=== PATIENT | female | born 1975 | race Hispanic/Latino ===

== ENCOUNTER 2019-10-15 12:06 | Emergency (ER) | payer BC, SELFPAY ==
[2019-10-15] VITALS (7 sets, daily range): BP systolic 113–138; BP diastolic 82–98; PULSE 56–105; RESP 13–19; TEMP 37; O2SAT 98–100
--- NOTE | ~2019-10-15 | XR_ITS ---
EXAMINATION: XR chest 2V DATE: 10/15/2019 12:33 INDICATION: Chest pain. TECHNIQUE: Frontal and lateral views of the chest were obtained. COMPARISON: Chest 2 views 10/06/2014 FINDINGS: The chest demonstrates clear lungs without pneumonia, pleural effusion, or pneumothorax. Th e heart size is normal. IMPRESSION: 1. No acute cardiopulmonary disease. Reviewed, dictated and finalized at location A.
--- NOTE | 2019-10-15 12:13 | ECG_ITS ---
Measurements Intervals [place] Rate: 93 P: 53 IA: 128 QRS: 34 QRSD: 83 T: 30 QT: 320 QTc: 399 Interpretive Statements SINUS RHYTHM POSSIBLE LEFT ATRIAL ENLARGEMENT BASELINE ARTIFACT- i, ii, iii, avr BORDERLINE ECG Electronically Signed On 10-15-2019 13:32:20 CDT by Delvis Alvarez D.O.
--- NOTE | 2019-10-15 12:13 | ED.CHESTPAIN ---
HPI - Chest Pain General Chief Complaint: Chest Pain Stated Complaint: cp Time Seen by Provider: 10/15/19 12:08 Source: RN notes reviewed History of Present Illness HPI narrative: Patient presents to emergency department from home for chest pain. Patient states pain began this morning. Pain is located left-sided chest and does not radiate. Described as sharp and stabbing. Patient notes mild associated shortness of breath. Denies any fevers or chills abdominal pain nausea vomiting or any other symptoms. States she took Tums at home with minimal relief. Related Data Home Medications Medication Instructions Recorded Confirmed cholecalciferol (vitamin D3) 125 5,000 unit PO DAILY 04/01/19 mcg (5,000 unit) tablet mycophenolate mofetil 500 mg tablet 1,000 mg PO Q12H 04/01/19 omega-3 fatty acids 500 mg capsule 500 mg PO DAILY 04/01/19 atorvastatin 20 mg tablet 20 mg PO DAILY 08/09/19 multivitamin 1 tablet PO DAILY 08/09/19 prednisone 5 mg tablet 5 mg PO DAILY tablet 08/09/19 vitamin E 1,000 unit PO DAILY 10/15/19 Allergies Allergy/AdvReac Type Severity Reaction Status Date / Time No Known Allergies Allergy Unknown Verified 10/15/19 13:07 Review of Systems Review of Systems: Narrative: Gen.: Denies fevers or chills ENT: Denies congestion Respiratory: Denies shortness of breath or cough CV: See HPI GI: Denies abdominal pain nausea, emesis or diarrhea Musculoskeletal: Denies back pain or muscle pain Neuro: Denies numbness, tingling, weakness or focal weakness Skin: Denies rash Except as documented, all other systems reviewed and negative [facility] Past Medical History Medical History Bartholin's cyst drained - Dec 2018 Dyslipidemia Lupus 2006 Surgical History Surgical History (Updated 04/01/19 @ 13:18 by Mimi Casiano) History of kidney surgery biopsy Family History Family History (Updated 09/15/18 @ 13:51 by DOCTOR UNKNOWN) Other Family history of rheumatoid arthritis Social History Social History Smoking status: Never smoker Second hand tobacco smoke exposure: No Alcohol intake: current Gender identity (if verbalized by the patient): Female Exam Narrative: Exam Narrative: APPEARANCE: No acute distress, nontoxic, resting in bed EYES: EOMI HEENT: Normocephalic, atraumatic, OMM RESPIRATORY: No respiratory distress Clear to auscultation bilaterally with no rhonchi wheezing or rales. CARDIOVASCULAR: Regular rate and rhythm without murmurs rubs or gallops. ABDOMINAL: Soft, nontender, nondistended, no rebound or guarding MUSCULOSKELETAl: Moves all extremities. No clubbing, cyanosis or edema. NEURO: Awake and alert. Following commands, speech normal, no focal deficits SKIN:: Warm, dry. No rashes lesions or abrasions PSYCHIATRIC: Normal affect/mood, Course Course Emergency Course: Patient states pain is improved with Toradol Discussed with patient results of workup and diagnosis. Discussed need for follow-up with primary care, proper use of medication, and reasons to return to the emergency department. Patient understands and agrees to current treatment plan Vital Signs Vital signs: Vital Signs Temperature 98.6 F 10/15/19 12:09 Pulse Rate 105 H 10/15/19 12:09 Respiratory Rate 13 10/15/19 12:09 Blood Pressure 138/98 H 10/15/19 12:09 Pulse Oximetry 98 10/15/19 12:09 Temperature 98.6 F 10/15/19 13:34 Pulse Rate 56 L 10/15/19 15:14 Respiratory Rate 18 10/15/19 15:14 Blood Pressure 114/82 10/15/19 15:14 Pulse Oximetry 98 10/15/19 15:14 MDM - Chest Pain MDM Narrative Medical decision making narrative: Patient's EKGs and labs are without significant high risk changes. Cardiac risk factors reviewed. Patient is felt likely low risk for ACS and reasonable for further risk stratification testing as an outpatient. Pain was not sudden
[2019-10-15 12:24] LABS: Basophils Percent Auto 0.5 % (0.2-1.2); Eosinophils Percent Auto 0.2 % (0-4.4); Hematocrit 41.9 % (37.0-47.0); Hemoglobin 14.1 g/dL (12.0-15.0); Immature Granulocyte Absolute 0.02 K/mm3 (0.00-0.031); Immature Granulocyte Percent A 0.4 % (0-0.5); Lymphocytes Absolute Auto 0.72 K/mm3 (0.9-3.2); Lymphocytes Percent Auto 12.6 % (18.3-44.2); Mean Corpuscular HGB Conc 33.7 g/dl (32-36); Mean Corpuscular Hemoglobin 29.7 pg (26-34); Mean Corpuscular Volume 88.4 fl (80-100); Mean Platelet Volume 11.5 fl (7.4-10.4); Monocytes Absolute Auto 0.2 K/mm3 (0.1-0.6); Neutrophils Absolute Auto 4.7 K/mm3 (1.3-6.7); Neutrophils Percent Auto 82.3 % (45.5-73.1); Platelet Count Result 169 k/mm3 (150-375); Red Blood Count 4.74 M/mm3 (4.2-5.4); Red Cell Distribution Width 11.7 % (11.5-14.5); White Blood Count 5.7 K/mm3 (4.5-10.0)
[2019-10-15 12:34] LABS: INR 0.9; Partial Thromboplastin Time 22.2 SECONDS (22.3-36.8); Prothrombin Time 11.3 Seconds (11.1-14.7)
[2019-10-15 12:35] LABS: Blood Urea Nitrogen 20 mg/dL (7-17); Calcium 10.2 mg/dL (8.4-10.2); Carbon Dioxide 28 mmol/L (22-30); Chloride 103 mmol/L (98-107); Estimated CRCL calculation 77 ml/min; Estimated Glomerular Filt Rate > 60; Glucose 107 mg/dL (65-105); Potassium 4.1 mmol/L (3.4-5.0); Sodium 135 mmol/L (137-145)
[2019-10-15 12:46] LABS: Troponin I < 0.012 ng/mL (0.000-0.034)
[2019-10-15] MEDS: KETOROLAC 30 MG/ML VIAL (*BKC) IV PUSH (13:06)
[2019-10-15 13:25] LABS: D Dimer 0.27 ug/mL (<0.48)
[2019-10-15 15:38] LABS: Troponin I < 0.012 ng/mL (0.000-0.034)
== END 2019-10-15 16:38 | disposition home or self-care (01) ==
PROVIDERS: Emergency Provider Emergency Medicine; PCP Family Medicine
DX: R07.9 Chest pain, unspecified (principal); E78.5 Hyperlipidemia, unspecified; R94.31 Abnormal electrocardiogram [ECG] [EKG]
CPT/HCPCS: 36415; 71046; 80048; 81025; 84484; 85025; 85380; 85610; 85730; 93005; 96374; 99284; J1885

== ENCOUNTER → 2020-10-11 11:00 | Outpatient (CLI) | payer BC, SELFPAY ==
--- NOTE | ~2020-10-11 | XR_ITS ---
EXAMINATION: XR chest 2V 10/11/2020 13:48 INDICATION: Chest pain PROCEDURE: 2 view chest COMPARISON: Comparison to multiple prior studies sequentially, with oldest reviewed study dated 08/2013. FINDINGS: The lungs are clear. The cardiomediastinal silhouette is within normal limits. There are no pleural effusions. There is no pneumothorax suspected. IMPRESSION: 1: NO ACUTE CARDIOPULMONARY DISEASE. Reviewed, dictated and finalized at location A.
== END ==
PROVIDERS: PCP Family Medicine; Visit Provider Family Medicine
DX: R07.89 Other chest pain (principal)
CPT/HCPCS: 71046

== ENCOUNTER 2022-04-16 09:26 | Outpatient (CLI) | payer BC, SELFPAY ==
--- NOTE | 2022-04-16 11:00 | NEURO_ITS ---
Impression: # History of numbness in digits I-III of the left hand. # Mild left Carpal Tunnel Syndrome. # Normal needle/EMG exam. # Clinical correlation recommended. Motor Nerve Conduction Upper Extremities Median Nerve Conduction Velocity (m/sec) Terminal Latency (msec) Response Voltage(mV) Elbow-Wrist Wrist Elbow Wrist Right Left 55 4.1 3 4 Ulnar Nerve Conduction Velocity (m/sec) Terminal Latency (msec) Response Voltage(mV) Above Elbow Below Elbow Wrist Above Elbow Below Elbow Wrist Right Left 55 58 2.7 4 4 5 F-Wave Latency Median (ms) Ulnar (ms) Right Left 28.9 27.7 Sensory Nerve Conduction Upper Extremities Median Nerve Stimulation Terminal Latency (msec) Wrist/Digit Response Voltage (uV) Wrist Right Left 5.1/5.1 44/39 Ulnar Nerve Stimulation Terminal Latency (msec) Wrist/Digit Response Voltage (uV) Wrist Right Left 3.0 38 Radial Nerve Terminal Latency (msec) Response Voltage(mV) Right Left 2.3 43 Left Right Muscles Examined Fibrillation Fasciculation Scarcity Voltage Duration Left Right Left Right Left Right Left Right Left Right Deltoid Biceps X Brachioradialis Triceps X Pronator Teres X Ext Indicis X Ext Digitorum X Abd Poll Brev X 1st Dorsal Interosseus Paraspinals MTDD
== END 2022-04-16 09:27 | disposition home or self-care (01) ==
PROVIDERS: PCP Family Medicine; Visit Provider Family Medicine
DX: R20.2 Paresthesia of skin (principal); G56.02 Carpal tunnel syndrome, left upper limb
CPT/HCPCS: 95886; 95909

== ENCOUNTER 2022-10-18 01:15 | Day surgery (SDC) | payer BC, SELFPAY ==
[2022-10-10 10:03] VITALS: BMI 21.5
--- NOTE | 2022-10-17 12:31 | WPDANESEPPF ---
Anes - Initial Pre Proc Eval Procedure: Operation Date: 10/18/22 07:30 Proposed Procedures p Screening Colonoscopy - Mann You MD Date/Time: 10/17/22 12:31 Surgeon: Mann You MD Pre Op Diagnosis: neoplasm screening Patient Data Age: 46 Gender: F Height: 1.63 m Weight: 57 kg Allergies Allergy/AdvReac Type Severity Reaction Status Date / Time No Known Allergies Allergy Unknown Verified 10/18/22 06:21 Home Medications Medication Instructions Recorded Confirmed Type mycophenolate mofetil 500 mg tablet 1,000 mg PO Q12H 04/01/19 10/18/22 History omega-3 fatty acids 500 mg capsule 500 mg PO DAILY 04/01/19 10/18/22 History multivitamin 1 tablet PO DAILY 08/09/19 10/18/22 History cholecalciferol (vitamin D3) 50 50 mcg PO DAILY 05/14/21 10/18/22 History mcg (2,000 unit) capsule rosuvastatin 10 mg tablet 10 mg PO QHS 05/14/21 10/18/22 History ezetimibe 10 mg tablet 10 mg PO DAILY 03/27/22 10/18/22 History estradiol 10 mcg vaginal tablet 10 mcg vaginal DIRECTED PRN 08/06/22 10/18/22 History (Yuvafem) Menopausal Symptoms losartan 50 mg tablet 50 mg PO DAILY #90 tabs 08/06/22 10/18/22 Rx Patient hx anesthesia problems: none Family hx anesthesia problems: none Results Review: All pre-operative results and documents have been reviewed as part of the pre-operative evaluation. [facility] Past Medical History Medical History Anxiety Bartholin's cyst drained - Dec 2018 Dyslipidemia Essential (primary) hypertension History of COVID-19 04/2021 Lupus 2007 Lupus nephritis SLE (systemic lupus erythematosus related syndrome) Surgical History Surgical History H/O breast biopsy (~02/20/22) H/O LEEP (~2010) History of kidney surgery (~2018) biopsy Family History Family History Other Family history of rheumatoid arthritis Social History Social History Smoking status: Never smoker Second hand tobacco smoke exposure: No Alcohol intake: current Alcohol use details: socially Substance use: never Substance use type: does not use Lack of Transportation: No Lack of Food: Never True Current Housing: I Have Housing Concerned About Future Housing: No Difficulty Paying Gas/Electric Bills: No Difficulty Paying for Meds: No Currently Unemployed: No Education: Associate Degree Difficulty w/ Childcare or Family Care: No Living arrangements: with family Additional living arrangements comments: Occupation/Education: occupation Gender identity (if verbalized by the patient): Female Sexual Orientation (if Verbalized by the Patient): Straight or Heterosexual Spiritual care concerns: No Anes - Eval Final PreProcedure Day of Procedure 10/17/22 12:31 Patient weight: normal Heart: regular rate and rhythm Lungs: clear to auscultation and normal air movement Airway: Mallampati scale class II Neurological: alert and oriented Last oral intake: >/= 8 hours ASA classification: III Emergent: no Anesthetic plan: proceed Anesthesia type and monitoring: general GIVS and standard monitoring Results Review: All pre-operative results and documents have been reviewed as part of the pre-operative evaluation. Informed Consent: The patient's anesthetic plan and its attendant risks and benefits were discussed with the patient/family/POA. Questions were solicited and answers provided to the satisfaction of the patient/family/POA.
[2022-10-18 06:22] VITALS: BP 108/63; PULSE 63; RESP 16; TEMP 36.4; O2SAT 100
[2022-10-18] MEDS: LACTATED RINGERS 1,000 ML 150 ML IV CONT (06:24)
--- NOTE | 2022-10-18 07:23 | PM.HPGS ---
History of Present Illness History of Present Illness Consent: Risks, benefits, and alternatives have been discussed and questions answered. Patient agrees to proceed with procedure. Chief complaint: neoplasm screening Narrative: Rosi Major is a 46 year old female Presents for screening colonoscopy. Patient's current weight appetite and bowel movements are normal. Patient denies abdominal pain. She has had no bleeding. Family history noncontributory. Patient does occasional have some tendency towards constipation occasional rectal discomfort noted incidentally. Review of Systems Review of Systems: Review of systems noncontributory. [facility] Past Medical History Medical History Anxiety Bartholin's cyst drained - Dec 2018 Dyslipidemia Essential (primary) hypertension History of COVID-19 04/2021 Lupus 2007 Lupus nephritis SLE (systemic lupus erythematosus related syndrome) Surgical History Surgical History H/O breast biopsy (~02/20/22) H/O LEEP (~2010) History of kidney surgery (~2018) biopsy Family History Family History Other Family history of rheumatoid arthritis Social History Social History Smoking status: Never smoker Second hand tobacco smoke exposure: No Alcohol intake: current Alcohol use details: socially Substance use: never Substance use type: does not use Lack of Transportation: No Lack of Food: Never True Current Housing: I Have Housing Concerned About Future Housing: No Difficulty Paying Gas/Electric Bills: No Difficulty Paying for Meds: No Currently Unemployed: No Education: Associate Degree Difficulty w/ Childcare or Family Care: No Living arrangements: with family Additional living arrangements comments: Occupation/Education: occupation Gender identity (if verbalized by the patient): Female Sexual Orientation (if Verbalized by the Patient): Straight or Heterosexual Spiritual care concerns: No Meds Home Medications and Allergies Home Medications Medication Instructions Recorded Confirmed Type mycophenolate mofetil 500 mg tablet 1,000 mg PO Q12H 04/01/19 10/18/22 History omega-3 fatty acids 500 mg capsule 500 mg PO DAILY 04/01/19 10/18/22 History multivitamin 1 tablet PO DAILY 08/09/19 10/18/22 History cholecalciferol (vitamin D3) 50 50 mcg PO DAILY 05/14/21 10/18/22 History mcg (2,000 unit) capsule rosuvastatin 10 mg tablet 10 mg PO QHS 05/14/21 10/18/22 History ezetimibe 10 mg tablet 10 mg PO DAILY 03/27/22 10/18/22 History estradiol 10 mcg vaginal tablet 10 mcg vaginal DIRECTED PRN 08/06/22 10/18/22 History (Yuvafem) Menopausal Symptoms losartan 50 mg tablet 50 mg PO DAILY #90 tabs 08/06/22 10/18/22 Rx Allergies Allergy/AdvReac Type Severity Reaction Status Date / Time No Known Allergies Allergy Unknown Verified 10/18/22 06:21 Vital Signs Vital Signs - 24 hr 10/18/22 06:22 Temperature 97.5 F L Pulse Rate 63 Respiratory Rate 16 Blood Pressure 108/63 Pulse Oximetry 100 Oxygen Delivery Room Air Exam Narrative: Physical exam reveals patient to be alert. Vital signs stable. HEENT exam is unremarkable. Patient is anicteric. Lungs are clear to auscultation and percussion. Heart is without murmur or extra sounds. Abdomen bowel sounds are present soft nontender with no organomegaly. Digital external rectal exam is normal. Assessment and Plan Assessment and plan (1) Encounter for screening colonoscopy: Code(s): Z12.11 - Encounter for screening for malignant neoplasm of colon Status: Acute Assessment and Plan: Patient presents today for screening colonoscopy. She appears to be at average risk for colon polyps. Further recommendations
[2022-10-18 07:44] VITALS: BP 83/50; PULSE 61; RESP 18; O2SAT 99
[2022-10-18 07:54] VITALS: BP 90/56; PULSE 76; RESP 20; O2SAT 100
[2022-10-18 08:04] VITALS: BP 91/57; PULSE 65; RESP 14; O2SAT 100
== END 2022-10-18 08:13 | disposition home or self-care (01) ==
PROVIDERS: PCP Family Medicine; Visit Provider Internal Medicine Gastroenterology
PROC: 0DJD8ZZ Inspection of Lower Intestinal Tract, Via Natural or Artificial Opening Endoscopic (ICD-10-PCS; CPT 45378; principal; 2022-10-18 07:30)
DX: Z12.11 Encounter for screening for malignant neoplasm of colon (principal); K64.8 Other hemorrhoids; I10 Essential (primary) hypertension; E78.5 Hyperlipidemia, unspecified; M32.9 Systemic lupus erythematosus, unspecified
CPT/HCPCS: 45378; J2704; J7120

== ENCOUNTER 2024-08-17 07:20 | Outpatient (CLI) | payer BC, SELFPAY ==
--- NOTE | ~2024-08-17 | US_ITS ---
US retroperitoneal comp 08/17/2024 09:20 Procedure: Realtime transabdominal ultrasound of the kidneys and bladder. Indication: Lupus nephritis. Microhematuria Comparison: No prior studies for comparison. Findings: Renal echotexture is normal bilaterally without hydronephrosis, contour deforming mass or r enal calculus. The right kidney measures 12 cm and left kidney measures 10.6 cm. Bladder within norm al limits. Impression: 1: Unremarkable renal ultrasound. No stones, masses or hydronephrosis. Reviewed, dictated and finalized at location A. Impression: 1: Unremarkable renal ultrasound. No stones, masses or hydronephrosis.
--- OUTSIDE RECORDS SUMMARY | 2024-08-17 07:25 | XMS_ITS | Encounter Summary ---
Author Organization [facility] Address [address] [place] [address] Care Team Providers Care Paintings Restorer Name Role Phone Jeff Haines MD Primary Care Provider Encounter Details Date Type Department Care Team (Late st Contact Info) Description 2018 Lab Requisition [facility] [address] [place] [id number] Harshad D[place] [address] Social History Tobacco Use Types Packs/Day Years Used Date Smoking Tobacco: Never Smokeless Tobacco: Never Alcohol Use Standard Drinks/Week Comments Yes 0 (1 standard drink = 0.6 oz pur e alcohol) rarely Comments Unknown Sex and Gender Information Value Date Recorded Sex Assigned at Not on file 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 Answer Date of Assessment Author No 09/17/2018 12:32 AM Billie Bradley RN * Is person blind or have serious difficulty seeing? Answer Date of Assessment Author No 09/17/2018 12:32 AM Billie Bradley RN * Does person have serious difficulty walking/climbing stairs? Answer Date of Assessment Author No 09/17/2018 12:32 AM Billie Bradley RN * Does person have difficulty dressing/bathing? Answer Date of Assessment Author No 09/17/2018 12:32 AM CDT Billie Velasquez RN * Does person have difficulty doing errands alone? Answer Date of Assessment Author No 09/17/2018 12:32 AM CDT Billie Velasquez RN documented as of this encounter Mental Status * Does person have difficulty concentrating/remembering/making decisions? Answer Entry Date Author No 09/17/2018 12:32 AM ERMELINDAT Billie Velasquez RN documented in this encounter Plan of Treatment Not on file documented as of this encounter Procedures Procedure Name Priority Date/Time Associated Diagnosis Comments DERMATOPATHOLOGY Routine 11/03/2018 12:0 0 AM CDT documented in this encounter Results * DERMATOPATHOLOGY (11/03/2018 12:00 AM CDT) Case Report Dermatopathology Report Case: [id number] Authorizing Provider: Harshad Duff MD Collected: 11/03/2018 12:00 AM Pathologist: Ulises Mena MD Received: 2018 12:25 PM Specimens: A) - Skin, upper abd B) - Skin, right lat upper back C) - Skin, right mid triceps area 9 1:24 PM CDT DERMATOPATHOLOGY LABORATORY Final Diagnosis Specimen A. SKIN, upper abd: COMPOUND NEVUS WITH CONGENITAL FEATURES (D22.5) Specimen B. SKIN, right lat upper back: COMPOUND MELANOCYTIC NEVUS, IRRITATED (D22.5) Specimen C. SKIN, right mid triceps area: COMPOUND MELANOCYTIC NEVUS, IRRITATED (D22.61) 9 1:24 PM CDT DERMATOPATHOLOGY LABORATORY Clinical History A-C: R/O Dys nevus 9 1:24 PM CDT DERMATOPATHOLOGY LABORATORY Gross Description Specimen A: Received is one formalin filled container labeled with the patient's name and designated upper abd. The specimen consists of a shave biopsy measuring 10x7x1 mm. Jar 0. Specimen B: Received is one formalin filled container labeled with the patient's name and designated right lat upper back. The specimen consists of a shave biopsy measuring 9x6x3 mm. Jar 0. Specimen C: Received is one formalin filled container labeled with the patient's name and designated right mid triceps area. The specimen consists of a shave biopsy measuring 7x6x1 mm. Jar 0. 9 1:24 PM CDT DERMATOPATHOLOGY LABORATORY Microscopic Description Specimen A. SKIN, upper abd: There are nests of melanocytes at the dermal-epidermal junction and within the dermis. Some melanocytes are splayed between collagen bundles and are localized around adnexal structures. Specimen B. SKIN, right lat upper back: There is melanin pigment in the stratum corneum. There are nests of melanocytes at the dermal-epidermal junction and within the dermis. Specimen C. SKIN, right mid triceps area: There is melanin pigment in the stratum corneum. There are nests of melanocytes at the dermal-epidermal junction and within the dermis. 1:24 PM CDT DERMATOPATHOLOGY LABORATORY Disclaimer An external and internal positive and negative controls are appropriate for the histochemical, immunohistochemical and immunofluorescence stain(s) in this case (if any), except where stated explicitly. The performance characteristics of the stain(s) cited in this report were developed and its performance characteristic determined by the Dermatopathology Laboratory at [facility], directed by Dr. Stanislaw Mena. These tests need not be, and therefore are not, approved by the [place] Food and Drug Administration. The tests are used for clinical purposes. Billing Codes Specimen Charges Stain Charges 00866 [id number] 1 1 1 9 1:24 PM CDT DERMATOPATHOLOGY LABORATORY Embedded Images 1:24 PM CDT DERMATOPATHOLOGY LABORATORY Pathology/Cytology TISSUE SPECIMEN FROM SKIN / Unknown 11/03/2018 2018 12:25 PM CDT Miscellaneous samples (specimen) TISSUE SPECIMEN FROM SKIN / Unknown 11/03/2018 2018 12:25 PM CDT Miscellaneous samples (specimen) TISSUE SPECIMEN FROM SKIN / Unknown 11/03/2018 2018 12:25 PM CDT us Harshad Duff MD LAB - PATHOLOGY/CYTOLOGY ORD ERABLES Final Result DERMATOPATHOLOGY LABORATORY [facility] - Department of Dermatology [address] [place] [address], 5[address] Floor Lab [address] [phone] documented in this encounter Visit Diagnoses Not on filedocumented in this encounter Care Teams Paintings Restorer Relationship Specialty Start Date End Date Jeff Haines MD [address] [place] [phone] PCP - General 10/20/18 documented as of this encounter
--- OUTSIDE RECORDS SUMMARY | 2024-08-17 07:25 | XMS_ITS | Encounter Summary ---
Author Organization [facility] Address [address] [place] [address] Care Team Providers Care Harvest Crew Supervisor Name Role Phone Jeff Haines MD Primary Care Provider Encounter Details Date Type Department Care Team (Late st Contact Info) Description 11/12/2018 Lab Requisition 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 Answer Entry Date Author No 09/17/2018 12:32 AM ERMELINDAT Billie Velasquez RN documented in this encounter Plan of Treatment Not on file documented as of this encounter Procedures Procedure Name Priority Date/Time Associated Diagnosis Comments DERMATOPATHOLOGY Routine 11/11/2018 12:0 0 AM CDT documented in this encounter Results * DERMATOPATHOLOGY (11/11/2018 12:00 AM CDT) Case Report Dermatopathology Report Case: [id number] Authorizing Provider: Harshad Duff MD Collected: 11/11/2018 12:00 AM Pathologist: Ulises Mena MD Received: 11/12/2018 11:37 AM Specimens: A) - Skin, right post trapezius neck B) - Skin, right upper back 9 3:44 PM CDT DERMATOPATHOLOGY LABORATORY Final Diagnosis Specimen A. SKIN, right post trapezius neck: LENTIGINOUS MELANOCYTIC NEVUS, COMPOUND TYPE, IRRITATED (COMPOUND MELANOCYTIC NEVUS WITH ARCHITECTURAL DISORDER) (D22.61) Specimen B. SKIN, right upper back: LENTIGINOUS MELANOCYTIC NEVUS, COMPOUND TYPE, IRRITATED (COMPOUND MELANOCYTIC NEVUS WITH ARCHITECTURAL DISORDER) (D22.5) 9 3:44 PM CDT DERMATOPATHOLOGY LABORATORY Clinical History A-B: R/O dys nevus. 9 3:44 PM CDT DERMATOPATHOLOGY LABORATORY Gross Description Specimen A: Received is one formalin filled container labeled with the patient's name and designated right post trapezius neck. The specimen consists of a shave biopsy measuring [id number]. Jar 0. Specimen B: Received is one formalin filled container labeled with the patient's name and designated right upper back. The specimen consists of a shave biopsy measuring [id number]. Jar 0. 9 3:44 PM T DERMATOPATHOLOGY LABORATORY Microscopic Description Specimen A. SKIN, right post trapezius neck: This is a compound nevus. There is melanin pigment in the stratum corneum. There is architectural disorder characterized by a lentiginous proliferation of melanocytes between irregular nevus nests of cells along the dermal epidermal junction. There is underlying fibroplasia of the papillary dermis. The intradermal component is bland in appearance and matures with depth. (Compound Gary's Nevus or Compound Dysplastic Nevus) Specimen B. SKIN, right upper back: This is a compound nevus. There is melanin pigment in the stratum corneum. There is architectural disorder characterized by a lentiginous proliferation of melanocytes between irregular nevus nests of cells along the dermal epidermal junction. There is underlying fibroplasia of the papillary dermis. The intradermal component is bland in appearance and matures with depth. (Compound Gary's Nevus or Compound Dysplastic Nevus) 9 3:44 PM T DERMATOPATHOLOGY LABORATORY Disclaimer An external and internal positive and negative controls are appropriate for the histochemical, immunohistochemical and immunofluorescence stain(s) in this case (if any), except where stated explicitly. The performance characteristics of the stain(s) cited in this report were developed and its performance characteristic determined by the Dermatopathology Laboratory at [facility], directed by Dr. Stanislaw Mena. These tests need not be, and therefore are not, approved by the [place] Food and Drug Administration. The tests are used for clinical purposes. Billing Codes Specimen Charges Stain Charges 69680 35083 1 1 9 3:44 PM CDT DERMATOPATHOLOGY LABORATORY Embedded Images 9 3:44 PM CDT DERMATOPATHOLOGY LABORATORY Pathology/Cytology TISSUE SPECIMEN FROM SKIN / Unknown 11/11/2018 11/12/2018 11:37 AM CDT Miscellaneous samples (specimen) TISSUE SPECIMEN FROM SKIN / Unknown 11/11/2018 11/12/2018 11:37 AM CDT Harshad Duff MD LAB - PATHOLOGY/CYTOLOGY ORD ERABLES Final Result DERMATOPATHOLOGY LABORATORY [facility] - Department of Dermatology [address] [place] [address], 5th Floor Lab [address] [phone] documented in this encounter Visit Diagnoses Not on filedocumented in this encounter Care Teams Harvest Crew Supervisor Relationship Specialty Start Date End Date Jeff Haines MD [address] [place] [address] PCP - General 10/20/18 documented as of this encounter
--- OUTSIDE RECORDS SUMMARY | 2024-08-17 07:26 | XMS_ITS | Encounter Summary ---
Author Organization [facility] Address [address] [place] [address] Care Team Providers Care Director Adult Name Role Phone Jeff Haines MD Primary Care Provider Encounter Details Date Type Department Care Team (Late st Contact Info) Description 07/30/2024 Results Follow-Up [facility] Obstetrical Gynecology [address] [facility] [address] [place] [phone] Moshe Coffey MD [address] [facility] [address] [place] [address] Social History Tobacco Use Types Packs/Day Years Used Date Smoking Tobacco: Never Alcohol Use Standard Drinks/Week Comments Yes 0 (1 standard drink = 0.6 oz pur e alcohol) AUDIT-C Answer Date Recorded Frequency of Alcohol Consumption Monthly or less 01/13/2019 Average Number of Drinks 1 or 2 019 Frequency of Binge Drinking Never 12/27 Comments No Sex and Gender Information Value Date Recorded Sex Assigned at Not on file 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
--- OUTSIDE RECORDS SUMMARY | 2024-08-17 07:26 | XMS_ITS | Encounter Summary ---
Author Organization [facility] Address [address] [place] [address] Care Team Providers Care Sand Technologist Name Role Phone Jeff Haines MD Primary Care Provider Reason for Visit * Reason Comments Refill Request Encounter Details Date Type Department Care Team (Late st Contact Info) Description 09/10/2022 Refill [facility] - Nephrology [address] [place] [address], [place] [phone] Lio Shipley MD [address] [place] [address] [place] [address] Refill Request Social History Tobacco Use Types Packs/Day Years Used Date Smoking Tobacco: Never Smokeless Tobacco: Never Alcohol Use Standard Drinks/Week Comments Yes 0 (1 standard drink = 0.6 oz pur e alcohol) rarely Comments Unknown Sex and Gender Information Value Date Recorded Sex Assigned at Not on file 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 Answer Date of Assessment Author No 09/17/2018 12:32 AM ERMELINDAT Billie Velasquez RN * Does person have difficulty doing errands alone? Answer Date of Assessment Author No 09/17/2018 12:32 AM Billie Bradley RN documented as of this encounter Mental Status * Does person have difficulty concentrating/remembering/making decisions? Answer Entry Date Author No 09/17/2018 12:32 AM Billie Bradley RN documented in this encounter Plan of Treatment Not on file documented as of this encounter Goals Goal Patient Goal Type Associated Problems Recent Progress Patient-Stated? Author Medication Management General On track( 025 9:29 AM CDT) Jenniffer Keller RN Note: Expected end date: ongoing Interventions: Pt to take medications as prescribed. Pt to inform physician of any changes regarding medications. 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
--- OUTSIDE RECORDS SUMMARY | 2024-08-17 07:26 | XMS_ITS | Clinical Summary ---
Author Organization [facility] Address [address] [place] [address] Care Team Providers Care Botanical Technical Officer Name Role Phone Jeff Haines MD Primary Care Provider Allergies No known active allergies Medications multivitamin capsule Rx: Multivitamins - Capsule Active mycophenolate mofetil (CELLCEPT) 500 mg tablet 1 tablet (500 mg total) 2 (two) times a day Active losartan (COZAAR) 50 mg tablet Take 1 tablet (50 mg total) by mouth daily 1 Active omega-3/dha/ep a/dpa/fish oil (OMEGA-3 2100 ORAL) Take by mouth Active rosuvastatin (CRESTOR) 10 mg tablet Take 1 tablet (10 mg total) by mouth daily 2 Active UNABLE TO FIND Apply 1 each to cheek daily Med Name: AZO Feminine Balance Probiotics Active estradioL (VAGIFEM) 10 mcg tabletIndicati ons:Vaginal atrophy Insert 1 tablet (10 mcg total) into the vagina 2 (two) times a week 24 tablet 3 4 02/19/20 25 Active Active Problems No known active problems Encounters Date Type Department Care Team Description 08/03/2024 Orders Only [facility] Obstetrical Gynecology [address] [facility] [address] [place] [address] Moshe Coffey MD Extremely dense tissue of both breasts on mammography (Primary Dx) 07/30/2024 3:46 PM CDT - 07/30/2024 11:59 PM CDT Hospital Encounter [facility] Bldg [facility] [address] [facility] [address] [place] [address] Screening mammogram, encounter for; Encounter for screening mammogram for malignant neoplasm of breast Discharge Disposition: Discharge to home or self care 07/30/2024 Results Follow-Up [facility] Obstetrical Gynecology [address] [facility] [address] [place] [phone] Moshe Coffey MD from Last 3 Months Surgical History Surgery Date Site/Laterality Comments RENAL BIOPSY RENAL BIOPSY RENAL BIOPSY MOLE REMOVAL BREAST BIOPSY Right CERVICAL BIOPSY W/ LOOP ELEC TRODE EXCISION 04/28/2010 - 04/27/2011 BREAST BIOPSY 02/20/2022 Left Medical History Medical History Date Comments H/O Leep Lupus HTN (hypertension) Family History Medical History Relation Name Comments No Known Problems Brother No Known Problems Father Breast cancer Father's Sister No Known Problems Maternal Grandfather No Known Problems Maternal Grandmother No Known Problems Mother Breast cancer Mother's Sister Hyperlipidemia Other unsure which family member No Known Problems Paternal Grandfather No Known Problems Paternal Grandmother No Known Problems Sister Relation Name Status Comments Brother Father Father's Sister Maternal Grandfather Maternal Grandmother Mother Mother's Sister Other Paternal Grandfather Paternal Grandmother Sister Social History Tobacco Use Types Packs/Day Years [...] on file 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 Gender Identity Not on file Sexual Orientation Not on file Obstetrics History Para Term AB IAB SAB Ectopic Multiple Livin g Live Births 0 0 0 0 0 0 0 0 0 0 0 Comments LTR 22.3% Last Filed Vital Signs Vital Sign Reading Time Taken Comments Blood Pressure 118/60 02/19/2024 9:18 AM CDT Pulse 0 11/06/2015 3:30 PM CDT Temperature - - Respiratory Rate - - Oxygen Saturation - - Inhaled Oxygen Concentration - - Weight 55.8 kg (123 lb) 02/19/2024 9:18 AM CDT Height 162.6 cm (5' 4 ) 02/19/2024 9:18 AM CDT Body Mass Index 21.11 02/19/2024 9:18 AM CDT Plan of Treatment Health Maintenance Due Date Last Done Comments Colon Cancer Screening-Colonoscopy 1975 Depression Screening 1975 Hepatitis C Screening 1975 Hepatitis B Screening 11/03/1993 Pneumococcal vaccine <65 (1 of 2 - PCV) 11/03/1994 Zoster Vaccine (1 of 2) 11/03/1994 Influenza Vaccine (Season Ended) 2024 01/20/2020, 02/23/2019, 02/12/2018, Additional history exists Cervical Cancer Screening 02/18/20252023, 02/19/2024, 02/13/2022, Additional history exists Regular Well Visit/Exam 18-64 02/18/2025, 02/14/2023, 02/13/2022, Additional history exists DTaP/Tdap/Td Vaccine (3 - Td or Tdap) 05/21/2025 05/21/2015, 03/17/2014 Breast Cancer Screening-Mammogram 07/30/2025 07/30/2024, 07/31/2023, 04/18/2021, Additional history exists Procedures Procedure Name Priority Date/Time Associated Diagnosis Comments SCREENING MAMMOGRAM BILATERAL W PAIGE Schedule Routine, Read Routine (OP Routine) 07/30/2024 4:00 PM CDT Screening mammogram, encounter for HIGH RISK HPV DNA DETECTION WITH GENOTYPING Routine 02/19/2024 9:50 AM CDT Well woman exam from Last 3 Months or Most Recently Relevant to Health Maintenance Results * Screening Mammogram Bilateral W Paige (07/30/2024 4:00 PM CDT) Anatomical Region Laterality Modality Breast Bilateral Mammography Impressions 07/30/2024 4:05 PM CDT BI-RADS ATLAS category (overall): 2 - Benign There is no mammographic evidence of malignancy. A 1 year screening mammogram is recommended. The patient has been or will be contacted. We recommend annual screening mammography for women at average risk of breast cancer beginning at age 40, based on guidelines of the [place] [employer] (ACR Practice Parameter for the Performance of Screening and Diagnostic Mammography) and [place] [employer]. For women with and elevated risk of breast cancer, please refer to the ACR Practice Parameter for specific screening recommendations. The patient will be entered into a reminder system with a target due date of 1 year for her next screening exam. Narrative 07/30/2024 4:05 PM CDT Screening Mammogram Bilateral W Paige: 07/30/24 The study was acquired using full field digital technology and interpreted from soft copy. 2D digital mammographic views, as well as 3D digital tomosynthesis were performed in the CC and MLO projections. This study was resulted using Computer-Aided Detection (CAD). CLINICAL: Screening mammogram, encounter for. No relevant medical history has been documented for this patient. History of breast cancer in Mother's Sister, Father's Sister. COMPARISONS: 05/14/2024 Diagnostic Mammogram Left W Paige 05/14/2024 US Breast Left Limited 07/31/2023 Diagnostic Mammogram Bilateral W Paige 07/31/2023 US Breast Right Limited 05/26/2023 MRI Breast Bilateral W WO Contrast BREAST TISSUE: The breasts are extremely dense, which lowers the sensitivity of mammography. FINDINGS: There are waxing and waning nodules/masses, consistent with breast cysts. There are bilateral biopsy markers. No suspicious masses, suspicious calcifications, or other suspicious findings are seen within either breast. There has been no suspicious change. us Self Screening Mammogram IMG MAMMO PROCEDURES Fi nal Result * High Risk HPV DNA Detection with Genotyping (Molecular component) (02/19/2024 9:50 AM CDT) HPV HR 16 Not Detected Not Detected BJ Comment:Testing performed by : [facility], [address] [facility]., [address] HPV HR 18 Not Detected Not Detected JENNIFER DAVIDSON Comment:Testing performed by : [facility], [address] [facility] [address] HPV HR Non 16/18 Not Detected Not Detected JENNIFER Comment: Interpretive Data Nucleic acid amplification for detection of high-risk Human Papilloma virus (HPV) is performed by the David Daniel 6800 HPV test. This assay specifically detects HPV-16 and HPV-18 genotypes. The following HPV genotypes are detected as high-risk HPV: HPV-31, 33, 35, ,39, 45, 51, 52, 56, 58, 59, 66, and 68. This assay has been approved by the [place] Food and Drug Administration for detection of HPV in cervical specimens collected by a physician using an endocervical brush/spatula or cervical broom and placed in the ThinPrep Pap Test PreservCyt collection containers. The performance characteristics of this test have been verified by the [facility] Molecular Infectious Disease laboratory. Correlate with separately reported cytology results, as applicable. Interpretive data last revised 22 Testing performed by: [facility], [address] [place] [address]., [address] Endocervical 02/19/2024 9:50 AM CDT 02/19/2024 7:26 PM CDT Narrative JENNIFER - 02/20/2024 2:14 AM CDT Clinical history and diagnosis->screening Number of vials->1 Testing type->Screening Last menstrual period (date if known)->postmen Moshe Coffey MD LAB BODY FLUIDS AND STO OLS ORDERABLES Final Result Performing Organization Address City/State/[facility] Co de Phone Number JENNIFER [phone] [facility] [place] [address] [facility] from Last 3 Months or Most Recently Relevant to Health Maintenance Insurance BLUE ACC CHOICE OOS ANTHEM ACCESS CHOICE BLUE ACC CHOICE OOS ANTHEM ACCESS CHOICE Care Teams Botanical Technical Officer Relationship Specialty Start Date End Date Jeff Haines MD PCP - General 02/26/19
--- OUTSIDE RECORDS SUMMARY | 2024-08-17 07:26 | XMS_ITS | Encounter Summary ---
Author Organization [facility] Address [address] [place] [address] Care Team Providers Care It Systems Analyst Consultant Name Role Phone Michel Phelan MD Primary Care Provider [phone] Margaux Oswald MD Primary Care Provider [phone] Jeff Haines MD Primary Care Provider Encounter Details Date Type Department Care Team (Late st Contact Info) Description 08/06/2017 Lab Requisition [facility] Care DermPath Lab [address] [place] [phone] Harshad Duff MD [address] [place] [address] Social History Tobacco Use Types Packs/Day Years Used Date Smoking Tobacco: Never Smokeless Tobacco: Never Alcohol Use Standard Drinks/Week Comments Yes 0 (1 standard drink = 0.6 oz pur e alcohol) Comments Unknown Sex and Gender Information Value Date Recorded Sex Assigned at Not on file 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 Gender Identity Not on file Sexual Orientation Not on file documented as of this encounter Plan of Treatment Not on file documented as of this encounter Procedures Procedure Name Priority Date/Time Associated Diagnosis Comments DERMATOPATHOLOGY Routine 08/05/2017 12:0 0 AM CDT documented in this encounter Results * DERMATOPATHOLOGY (08/05/2017 12:00 AM CDT) Case Report Dermatopathology Report Case: [id number] Authorizing Provider: Harshad Duff MD Collected: 08/05/2017 12:00 AM Pathologist: Ulises Mena MD Received: 08/06/2017 10:42 AM Specimens: A) - Skin, vertex scalp B) - Skin, right middle finger tip 6:22 PM T DERMATOPATHOLOGY LABORATORY Final Diagnosis Specimen A. SKIN, vertex scalp: SEBORRHEIC KERATOSIS (L82.1) PRESENT AT MARGIN Specimen B. 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 Check margins. B: R/O pyogenic granuloma vs other neoplasm. Check margins. 6:22 PM CDT DERMATOPATHOLOGY LABORATORY Gross Description Specimen: A: Received is one formalin filled container labeled with the patient's name and designated vertex scalp. The specimen consists of a shave biopsy measuring [id number].The margin is inked green. Jar 0. Specimen: B: Received is one formalin filled container labeled with the patient's name and designated right middle finger tip. The specimen consists of a shave biopsy measuring [id number]. The margin is inked green. Jar 0. 6:22 PM T DERMATOPATHOLOGY LABORATORY Microscopic Description Specimen A. SKIN, vertex scalp: Sections show an acanthotic lesion composed of relatively uniform keratinocytes. There is hyperkeratosis and pseudo horn cysts formation. This lesion is present at the margin of the specimen. Specimen B. SKIN, right middle finger tip: Sections show a proliferation of blood vessels in lobules lined by uniform endothelial cells and by fibrous septa. This lesion is present at the margin of the specimen. 6:22 PM CDT DERMATOPATHOLOGY LABORATORY Disclaimer An external and internal positive and negative controls are appropriate for the histochemical, immunohistochemical and immunofluorescence stain(s) in this case (if any), except where stated explicitly. The performance characteristics of the stain(s) cited in this report were developed and its performance characteristic determined by the Dermatopathology Laboratory at [facility]. These tests need not be, and therefore are not, approved by the [place] Food and Drug Administration. The tests are used for clinical purposes. Billing Codes Specimen Charges Stain Charges 05477 46586 1 1 8 6:22 PM CDT DERMATOPATHOLOGY LABORATORY Embedded Images 8 6:22 PM CDT DERMATOPATHOLOGY LABORATORY Pathology/Cytology TISSUE SPECIMEN FROM SKIN / Unknown 08/05/2017 08/06/2017 10:42 AM CDT Miscellaneous samples (specimen) TISSUE SPECIMEN FROM SKIN / Unknown 08/05/2017 08/06/2017 11:14 AM CDT Harshad Duff MD LAB - PATHOLOGY/CYTOLOGY ORD ERABLES Final Result DERMATOPATHOLOGY LABORATORY [facility] - Department of Dermatology [address] [place] [address] 5th Floor Lab [address] [phone] documented in this encounter Visit Diagnoses Not on filedocumented in this encounter Care Teams It Systems Analyst Consultant Relationship Specialty Start Date End Date Michel Phelan MD [address] [place] [address] PCP - General 09/22/08 05/25/18 Margaux Oswald MD [address] [place] [address] PCP - General 05/26/18 10/19/18 Jeff Haines MD [address] [place] [phone] PCP - General 10/20/18 documented as of this encounter
--- OUTSIDE RECORDS SUMMARY | 2024-08-17 07:26 | XMS_ITS | Encounter Summary ---
Author Organization [facility] Address [address] [place] [address] Care Team Providers Care Shipsmith Name Role Phone Margaux Oswald MD Primary Care Provider [phone]- [phone] Jeff Haines MD Primary Care Provider Encounter Details Date Type Department Care Team (Late st Contact Info) Description 09/02/2018 Lab Requisition [facility]ology Lab [address] [place] [address] Lio Shipley MD [address] [place] [address] Acute kidney failure Social History Tobacco Use Types Packs/Day Years Used Date Smoking Tobacco: Never Smokeless Tobacco: Never Alcohol Use Standard Drinks/Week Comments Yes 0 (1 standard drink = 0.6 oz pur e alcohol) Comments Unknown Sex and Gender Information Value Date Recorded Sex Assigned at Not on file 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 Answer Date of Assessment Author No 09/02/2018 8:20 AM Glo Joyner RN * Is person blind or have serious difficulty seeing? Answer Date of Assessment Author No 09/02/2018 8:20 AM Glo Joyner RN * Does person have serious difficulty walking/climbing stairs? Answer Date of Assessment Author No 09/02/2018 8:20 AM CDT Glo Hoffmann RN * Does person have difficulty dressing/bathing? Answer Date of Assessment Author No 09/02/2018 8:20 AM CDT Glo Hoffmann RN * Does person have difficulty doing errands alone? Answer Date of Assessment Author No 09/02/2018 8:20 AM CDT Glo Hoffmann RN documented as of this encounter Mental Status * Does person have difficulty concentrating/remembering/making decisions? Answer Entry Date Author No 09/02/2018 8:20 AM CDT Glo Hoffmann RN documented in this encounter Plan of Treatment Not on file documented as of this encounter Procedures Procedure Name Priority Date/Time Associated Diagnosis Comments ELECTRON MICROSCOPY Routine 09/01/2018 1 :18 PM CDT Acute kidney failure documented in this encounter Results * ELECTRON MICROSCOPY (09/01/2018 1:18 PM CDT) Case Report Gynecologic Cytology Report Case: [id number] Authorizing Provider: Lio Shipley MD Collected: 09/01/2018 01:18 PM First Screen: Chris Manuel Received: 09/02/2018 09:31 AM Specimen: EM RENAL - [facility], Kidney, Left, There are two pieces, each is approx. 2.5 mm long. 09/09/2018 3:21 PM CDT [facility] Electron Microscopy Technical Summary # of Block(s) cut: 3 # of Glomeruli found: 2 # of Glomeruli photographed: 1 09/09/2018 3:21 PM CDT [facility] Embedded Images - EM 09/09/2018 3:21 PM CDT [facility] Pathology/Cytolo gy (Kidney, Left) 09/01/2018 1:18 PM CDT 09/02/2018 9:31 AM CDT us Lio Shipley MD LAB - PATHOLOGY/CYTOLOGY ORDER BENJAMIN Final Result U PATHOLOGY LAB [facility] [place], [place] [id number] [place] [address] documented in this encounter Visit Diagnoses Diagnosis Acute kidney failure documented in this encounter Care Teams Shipsmith Relationship Specialty Start Date End Date Margaux Oswald MD PCP - General 05/26/18 10/19/18 Jeff Haines MD [address] [place] [address] PCP - General 10/20/18 documented as of this encounter
--- OUTSIDE RECORDS SUMMARY | 2024-08-17 07:26 | XMS_ITS | Clinical Summary ---
Author Organization [facility] Address [address] [facility] [place] [address] Care Team Providers Care Miner Helper Name Role Phone Jeff Haines MD Primary Care Provider Source Comments [facility],non-owned Affiliates and Associated Physician Practices is amultiple site organization consisting of ambulatory clinics and hospital sitesin [place], [place], [place] and [place]. This disclosure is being madepursuant to the Care Everywhere program and may not contain all information available regarding this patient. Last updated 18.[facility] Allergies No known active allergies Medications * Be aware that medications may not be up to date on this document. Alwaysverify current medications with the patient. Multiple Vitamin (MULTIVITAMIN+ PO) Daily. 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) Take 1 (one) tablet by mouth once daily 90 tablet 3 12/07/19 22 Active Additional Information Patient taking differently: 50 mgOral DAILY, Reported on 10/01/2022 Lactobacillus (AZO Complete Feminine Balance) CAPS Active mycophenolate (Cellcept) 500 MG tabletIndications: 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) Take 2 (two) tablets by mouth 2 times daily 360 tablet 3 12/17/19 24 Active rosuvastatin (Crestor) 10 MG tabletIndications: Other hyperlipidemia TAKE 1 TABLET DAILY 90 tablet 3 03/22/20 24 Active Active Problems Problem Noted Date Diagnosed Date Other hyperlipidemia 04/12/2021 Systemic lupus erythematosus 07/01/2012 Anemia 05/07/2012 Glomerular disease in systemic lupus erythematos 10/17/2011 Resolved Problems Problem Noted Date Diagnosed Date Resolved Date Lupus nephritis 09/01/2018 09/23/2023 Encounters Date Type Department Care Team Description 08/05/2024 Orders [facility] [address] [place] [phone] Lio Shipley MD 07/27/2024 9:30 AM CDT Office Visit [facility] - Nephrology [address] [place] [phone] Lio Shipley MD Glomerular disease in systemic lupus erythematosus ([facility]) (Primary Dx); Other hyperlipidemia 07/27/2024 Orders Only [facility] Nephrology [address] [place] [phone] Lio Shipley MD Lupus nephritis ([facility]) ; Glomerular disease in systemic lupus erythematosus ([facility]) 07/27/2024 Orders Only [facility] Nephrology [address] [place] [phone] Lio Shipley MD Lupus nephritis ([facility]) ; Microhematuria 07/27/2024 Travel 07/22/2024 Orders Only [facility] Nephrology [address] [place] [phone] Lio Shipley MD from Last 3 Months Immunizations Immunization Administration Dates Next Due INFLUENZA VACCINE, TRIV. 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 Gender Identity Not on file Sexual Orientation Not on file Last Filed Vital Signs Vital Sign Reading Time Taken Comments Blood Pressure 136/76 07/27/2024 12:34 PM CDT blood pressure rechecked before leaving clinic Pulse 79 07/27/2024 12:34 PM CDT Temperature 36.2 C (97.1 F) 07/27/2024 9:22 AM CDT Respiratory Rate 20 07/27/2024 9:22 AM CDT Oxygen Saturation 100% 07/27/2024 9:2 2 AM CDT Inhaled Oxygen Concentration - - Weight 56.4 kg (124 lb 6.4 oz) 07/27/2024 9:22 AM CDT Height 162.6 cm (5' 4 ) 08/01/2020 8:22 AM CDT Body Mass Index 21.35 08/01/2020 8:22 AM CDT Plan of Treatment Health Maintenance Due Date Last Done Comments COLOGUARD (AGES 45-75) - COLON CA SCREENING 1975 COLON MONITORING 1975 COLONOSCOPY - COLON CA SCREENING 1975 CT COLONOGRAPHY - COLON CA SCREENING 1975 Colorectal Cancer Screening 1975 FIT - COLON CA SCREENING 1975 FLEX SIG - COLON CA SCREENING 1975 PAP SMEAR 1975 COVID-19 VACCINE (#1) 11/03/1980 HIV SCREENING 11/03/1990 HEPATITIS C SCREENING 10/30/1993 DTAP/TDAP/TD VACCINES (1 - Tdap) 11/03/1994 HEPATITIS B VACCINE (1 of 3 - 19+ 3-dose series) 11/03/1994 PNEUMOCOCCAL VACCINE (1 of 2 - PCV) 11/03/1994 ZOSTER VACCINE (1 of 2) 11/03/1994 DEPRESSION SCREENING 04/28/2024 INFLUENZA VACCINE (Season Ended) 2024 06/14/2016 MAMMOGRAM 07/30/2026 07/30/2024, 04/0 07/2024, 07/31/2023, Additional history exists HIB VACCINE Aged Out No longer eligi ble based on patient's age to complete this topic HPV VACCINE Aged Out No longer eligi ble based on patient's age to complete this topic MENINGOCOCCAL (Group B) VACCINE SHARED DECISION-MAKING Aged Out No longer eligible based on patient's age to complete this topic MENINGOCOCCAL GROUPS A/C/Y/W VACCINE Aged Out No longer eligible based on patient's age to complete this topic Goals Goal Patient Goal Type Associated Problems Recent Progress Patient-Stated? Author Medication Management General On track( 025 9:29 AM CDT) Jenniffer Keller, RN Note: Expected end date: ongoing Interventions: Pt to take medications as prescribed. Pt to inform physician of any changes regarding medications. 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) DNA ANTIBODY DOUBLE STRANDED Routine 08/05/2024 7:09 AM CDT 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) PROTEIN CREATININE RATIO URINE RANDOM PNL 07/22/2024 7:16 AM CDT CBC W AUTO DIFFERENTIAL 07/22/2024 7:16 AM CDT COMPREHENSIVE METABOLIC PANEL 07/22/2024 7:16 AM CDT from Last 3 Months Results * C-REACTIVE PROTEIN (08/05/2024 7:09 AM CDT) Pathologist [facility] C-Reactive Protein <5.0 <8.0 mg/L [facility] Comment: REPORT COMMENT: FASTING:NO Test Performed at: [facility] [address] REYMUNDO ARROYO MD Blood BLOOD SPECIMEN / Unknown 08/05/2024 7:09 AM CDT 08/05/2024 7:11 AM CDT Lio Shipley MD LAB - CHEMISTRY ORDERABLES Fin al Result Performing Organization Address [facility]/ZIP Co de Phone Number [facility] [address] [place] [phone] * (ABNORMAL) MELANIE BLOOD TITER (08/05/2024 7:09 AM CDT) Pathologist [facility] MELANIE 1:80(H) titer [facility] Comment: A low level MELANIE titer may be present in pre-clinical autoimmune diseases and normal individuals. Reference Range <1:40 Negative 1:40-1:80 Low Antibody Level >1:80 Elevated Antibody Level MELANIE Pattern Nuclear, Homogeneou s(A) [facility] Comment: Homogeneous pattern is associated with systemic lupus erythematosus (SLE), drug-induced lupus and juvenile idiopathic arthritis. AC-1: Homogeneous International Consensus on MELANIE Patterns (https://doi.org/10.1515/syjq-4926-6515) Test Performed at: [facility] [address] [place] [address] REYMUNDO ARROYO MD 08/05/2024 7:09 AM CDT 08/05/2024 7:11 AM CDT Lio Shipley MD LAB - CHEMISTRY ORDERABLES Fin al Result Performing Organization Address [facility]/ZIP Co de Phone Number [address] [address] * (ABNORMAL) MELANIE BLOOD SCREEN W/REFLEX TITER (08/05/2024 7:09 AM CDT) Pathologist [facility] MELANIE Screen POSITIVE( A) NEGATIVE [facility] Comment: MELANIE IFA is a first line screen for detecting the presence of up to approximately 150 autoantibodies in various autoimmune diseases. A positive MELANIE IFA result is suggestive of autoimmune disease and reflexes to titer and pattern. Further laboratory testing may be considered if clinically indicated. For additional information, please refer to http://education.Kinematix/faq/PUB142 (This link is being provided for informational/ educational purposes only.) Test Performed at: [facility] [address] [facility] [place] [address] REYMUNDO ARROYO MD Blood BLOOD SPECIMEN / Unknown 08/05/2024 7:09 AM CDT 08/05/2024 7:11 AM CDT Lio Shipley MD LAB - CHEMISTRY ORDERABLES Fin al Result Performing Organization Address [facility] Co de Phone Number [address] [address] * (ABNORMAL) DNA ANTIBODY DOUBLE STRANDED (08/05/2024 7:09 AM CDT) dsDNA Antibody 7(H) IU/mL [facility] Comment: IU/mL Interpretation < or = 4 Negative 5-9 Indeterminate > or = 10 Positive Test Performed at: [facility] [address] REYMUNDO ARROYO MD Blood BLOOD SPECIMEN / Unknown 08/05/2024 7:09 AM CDT 08/05/2024 7:11 AM CDT Lio Shipley MD LAB - HEMATOLOGY ORDERABLES Fi nal Result Performing Organization Address City/[facility] Co de Phone Number [address] [address] * ERYTHROCYTE SEDIMENTATION RATE (08/05/2024 7:09 AM CDT) Erythrocyte Sedimentation Rate Westergren 2 < OR = 20 mm/h [facility] Comment: Test Performed at: [facility] [address] REYMUNDO ARROYO MD Blood BLOOD SPECIMEN / Unknown 08/05/2024 7:09 AM CDT 08/05/2024 7:11 AM CDT Lio Shipley MD LAB - HEMATOLOGY ORDERABLES Fi nal Result Performing Organization Address [facility]/ZIP Co de Phone Number [facility] [address] [place] [phone] * (ABNORMAL) CBC WITH DIFFERENTIAL (07/22/2024 7:16 AM CDT) White Blood Cell Count 3.2(L) 3.8 - 10.8 Thousand/ uL [facility] RBC 4.13 3.80 - 5.10 Million/u L [facility] Hemoglobin 12.2 11.7 - 15.5 g/dL [facility] Hematocrit 37.7 35.0 - 45.0 % [facility] MCV 91.3 80.0 - 100.0 fL [facility] MCH 29.5 27.0 - 33.0 pg [facility] MCHC 32.4 32.0 - 36.0 g/dL [facility] Comment: For adults, a slight decrease in the calculated MCHC value (in the range of 30 to 32 g/dL) is most likely not clinically significant; however, it should be interpreted with caution in correlation with other red cell parameters and the patient's clinical condition. RDW 12.3 11.0 - 15.0 % [facility] Platelet Count 139(L) 140 - 400 Thousand/ uL [facility] MPV 12.3 7.5 - 12.5 fL [facility] Neutrophil Absolute 1597 1500 - 7800 cells/uL [facility] Lymphocytes Absolute 1261 850 - 3900 cells/uL [facility] Absolute Monocytes 272 200 - 950 cells/uL [facility] Eosinophils Absolute 42 15 - 500 cells/uL [facility] Basophils Absolute 29 0 - 200 cells/uL [facility] Granulocytes % 49.9 % [facility] Lymphocytes % 39.4 % [facility] Monocytes % 8.5 % [facility] Eosinophils % 1.3 % [facility] Basophils % 0.9 % [facility] Comment: Test Performed at: [facility] [address] REYMUNDO ARROYO MD 07/22/2024 7:16 AM CDT 07/22/2024 7:17 AM CDT Lio Shipley MD LAB - HEMATOLOGY ORDERABLES Fi nal Result Performing Organization Address [facility]/ZIP Co de Phone Number [facility] [address] [place] [address] * (ABNORMAL) COMPREHENSIVE METABOLIC PANEL (07/22/2024 7:16 AM CDT) Glucose 90 65 - 99 mg/dL [facility] Comment: Fasting reference interval BUN 8 7 - 25 mg/dL [facility] Creatinine 0.65 0.50 - 0.99 mg/dL [facility] eGFR by Cystatin C 109 > OR = 60 mL/min/1. 73m2 [facility] BUN/Creatinine Ratio SEE NOTE: 6 - 22 (calc) [facility] Comment: Not Reported: BUN and Creatinine are within reference range. Sodium 136 135 - 146 mmol/L [facility] Potassium 3.9 3.5 - 5.3 mmol/L [facility] Chloride 101 98 - 110 mmol/L [facility] CO2 28 20 - 32 mmol/L [facility] Calcium 9.1 8.6 - 10.2 mg/dL [facility] Protein Total 6.0(L) 6.1 - 8.1 g/dL [facility] Albumin 4.1 3.6 - 5.1 g/dL [facility] Globulin Total 1.9 1.9 - 3.7 g/dL (calc) [facility] Albumin/Globulin Ratio 2.2 1.0 - 2.5 (calc) [facility] Bilirubin Total 0.5 0.2 - 1.2 mg/dL [facility] Alkaline Phosphatase 42 31 - 125 U/L [facility] AST 20 10 - 35 U/L [facility] ALT 22 6 - 29 U/L [facility] Comment: Test Performed at: [facility] [address] REYMUNDO ARROYO MD 07/22/2024 7:16 AM CDT 07/22/2024 7:17 AM CDT us Lio Shipley MD LAB - CHEMISTRY ORDERABLES Fin al Result [address] [address] * PROTEIN CREATININE RATIO URINE RANDOM PNL (07/22/2024 7:16 AM CDT) Creatinine Urine 200 20 - 275 mg/dL [facility] Protein/Creatinine Ratio 75 24 - 184 mg/g creat [facility] Protein/Creatinine Ratio 0.075 0.024 - 0.184 mg/mg creat [facility] Protein Random Urine 15 5 - 24 mg/dL [facility] Comment: REPORT COMMENT: FASTING:YES Test Performed at: [facility] [address] [place] [address] REYMUNDO ARROYO MD 07/22/2024 7:16 AM CDT 07/22/2024 7:17 AM CDT Lio Shipley MD LAB - URINE CHEMISTRY ORDERABL ES Final Result [facility] [id number] [place] [address] from Last 3 Months Insurance AN[employer] Advance Directives * Full Code (Latest Code Status on File) Date Activated Date Inactivated Comments 09/16/2018 3:49 PM 09/17/2018 2:11 AM * Full Code Date Activated Date Inactivated Comments 09/01/2018 7:51 PM 09/02/2018 10:44 AM * Full Code Date Activated Date Inactivated Comments 09/01/2018 6:19 PM 09/01/2018 7:51 PM Care Teams Miner Helper Relationship Specialty Start Date End Date Jeff Haines MD [address] [place] [address] PCP - General 10/20/18
--- OUTSIDE RECORDS SUMMARY | 2024-08-17 07:26 | XMS_ITS | Encounter Summary ---
Author Organization [facility] Address [address] [place] [address] Care Team Providers Care Ekg Tech Name Role Phone Jeff Haines MD Primary Care Provider Encounter Details Date Type Department Care Team (Late st Contact Info) Description 12/19/2022 Lab Requisition [facility] - DermPath Lab [address] 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 Gender Identity Not on file Sexual Orientation [...] of meds documented as of this encounter Procedures Procedure Name Priority Date/Time Associated Diagnosis Comments DERMATOPATHOLOGY Routine 12/18/2022 12:0 0 AM CDT documented in this encounter Results * DERMATOPATHOLOGY (12/18/2022 12:00 AM CDT) Case Report Dermatopathology Report Case: [id number] Authorizing Provider: Harshad Duff MD Collected: 12/18/2022 12:00 AM Ordering Location: [facility] DermPath Lab Received: 12/20/2022 08:45 AM Pathologist: Susan Carias MD Specimens: A) - Skin, right flank post B) - Skin, below right axilla on chest C) - Skin, right side neck D) - Skin, right side neck inferiorly 3:54 PM CDT DERMATOPATHOLOGY LABORATORY Final Diagnosis Specimen A. SKIN, right flank post: COMPOUND MELANOCYTIC NEVUS, IRRITATED (D22.5) Specimen B. SKIN, below right axilla on chest: COMPOUND MELANOCYTIC NEVUS (D22.5) Specimen C. SKIN, right side neck: INTRADERMAL MELANOCYTIC NEVUS (D22.4) Specimen D. SKIN, right side neck inferiorly: INTRADERMAL MELANOCYTIC NEVUS (D22.4) 3 3:54 PM [facility] DERMATOPATHOLOGY [facility]ORATORY Clinical History A-D: R/O Dys Nevus 3 3:54 PM [facility] DERMATOPATHOLOGY LABORATORY Gross Description Specimen A: Received is one formalin filled container labeled with the patient's name and designated right flank post. The specimen consists of a shave biopsy measuring 4x4x1 mm. Jar 0. Specimen B: Received is one formalin filled container labeled with the patient's name and designated below right axilla on chest. The specimen consists of a shave biopsy measuring 5x4x2 mm. Jar 0. Specimen C: Received is one formalin filled container labeled with the patient's name and designated right side neck. The specimen consists of a shave biopsy measuring 7x5x2 mm. Jar 0. Specimen D: Received is one formalin filled container labeled with the patient's name and designated right side neck inferiorly. The specimen consists of a shave biopsy measuring 5x6x3 mm. Jar 0. 3 3:54 PM [facility] DERMATOPATHOLOGY LABORATORY Microscopic Description Specimen A. SKIN, right flank post: There is melanin pigment in the stratum corneum. There are nests of melanocytes at the dermal-epidermal junction and within the dermis. Specimen B. SKIN, below right axilla on chest: There are nests of melanocytes at the dermal-epidermal junction and within the dermis. Specimen C. SKIN, right side neck: There are nests of cytologically bland melanocytes within the dermis that mature with depth. Specimen D. SKIN, right side neck inferiorly: There are nests of cytologically bland melanocytes within the dermis that mature with depth. 3 3:54 PM T DERMATOPATHOLOGY LABORATORY Disclaimer An external and internal positive and negative controls are appropriate for the histochemical, immunohistochemical and immunofluorescence stain(s) in this case (if any), except where stated explicitly. The performance characteristics of the stain(s) cited in this report were developed and its performance characteristic determined by the Dermatopathology Laboratory at [facility], directed by Dr. Stanislaw Mena. These tests need not be, and therefore are not, approved by the [place] Food and Drug Administration. The tests are used for clinical purposes. Billing Codes Specimen Charges Stain Charges 69124 45837 [id number] 1 1 1 1 3 3:54 PM CDT DERMATOPATHOLOGY LABORATORY Embedded Images 3 3:54 PM CDT DERMATOPATHOLOGY LABORATORY Pathology/Cytology TISSUE SPECIMEN FROM SKIN / Unknown 12/18/2022 12/20/2022 8:45 AM CDT Miscellaneous samples (specimen) TISSUE SPECIMEN FROM SKIN / Unknown 12/18/2022 12/20/2022 8:45 AM CDT Miscellaneous samples (specimen) TISSUE SPECIMEN FROM SKIN / Unknown 12/18/2022 12/20/2022 8:45 AM CDT Miscellaneous samples (specimen) TISSUE SPECIMEN FROM SKIN / Unknown 12/18/2022 12/20/2022 8:45 AM CDT Harshad Duff MD LAB - PATHOLOGY/CYTOLOGY ORD ERABLES Final Result DERMATOPATHOLOGY LABORATORY [facility] - Department of Dermatology [facility] Specialized Medicine [address] [place] [address], [address] [phone] documented in this encounter Visit Diagnoses Not on filedocumented in this encounter Care Teams Ekg Tech Relationship Specialty Start Date End Date Jeff Haines MD [address] [place] [phone] PCP - General 10/20/18 documented as of this encounter
--- OUTSIDE RECORDS SUMMARY | 2024-08-17 07:26 | XMS_ITS | Encounter Summary ---
Author Organization [facility] Address [address] [facility] [place] [address] Care Team Providers Care Computer Programming Manager Name Role Phone Jeff Haines MD Primary Care Provider Encounter Details Date Type Department Care Team (Late st Contact Info) Description 03/09/2020 Lab Requisition [facility] [address] [facility], [place] [phone] Harshad [place] [address] Social History Tobacco Use Types Packs/Day Years Used Date Smoking Tobacco: Never Smokeless Tobacco: Never Alcohol Use Standard Drinks/Week Comments Yes 0 (1 standard drink = 0.6 oz pur e alcohol) rarely Comments Unknown Sex and Gender Information Value Date Recorded Sex Assigned at Not on file 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 Gender Identity Not on file Sexual Orientation [...] Bradley RN * Does person have difficulty doing [...] Priority Date/Time Associated Diagnosis Comments DERMATOPATHOLOGY Routine 03/08/2020 12:0 0 AM PAPER WINDER documented in this encounter Results * DERMATOPATHOLOGY (03/08/2020 12:00 AM PAPER WINDER) Case Report Dermatopathology Report Case: [id number] Authorizing Provider: Harshad Duff MD Collected: 03/08/2020 12:00 AM Ordering Location: [facility] Received: 03/09/2020 11:36 AM Pathologist: Ulises Mena MD Specimen: Skin, left lower lateral buttocks 0 4:05 PM [facility] DERMATOPATHOLOGY [facility]ORATORY Final Diagnosis Specimen A. SKIN, left lower lateral buttocks: DERMATOFIBROMA (D23.9) 0 4:05 PM [facility] DERMATOPATHOLOGY LABORATORY Clinical History R/O dys nevus, cyst. 0 4:05 PM [facility] DERMATOPATHOLOGY LABORATORY Gross Description Specimen A: Received is one formalin filled container labeled with the patient's name and designated left lower lateral buttocks. The specimen consists of a punch biopsy measuring [id number], bisected. Jar 0. 0 4:05 PM [facility] DERMATOPATHOLOGY LABORATORY Microscopic Description Specimen A. SKIN, left lower lateral buttocks: There is epidermal hyperplasia. Within the dermis, there are fibrohistiocytic cells in haphazard array among coarse collagen bundles. 0 4:05 PM [facility] DERMATOPATHOLOGY LABORATORY Disclaimer An external and internal positive and negative controls are appropriate for the histochemical, immunohistochemical and immunofluorescence stain(s) in this case (if any), except where stated explicitly. The performance characteristics of the stain(s) cited in this report were developed and its performance characteristic determined by the Dermatopathology Laboratory at [facility], directed by Dr. Stanislaw Mena. These tests need not be, and therefore are not, approved by the [place] Food and Drug Administration. The tests are used for clinical purposes. Billing Codes Specimen Charges Stain Charges 60499 1 0 4:05 PM PAPER WINDER DERMATOPATHOLOGY LABORATORY Embedded Images 0 4:05 PM PAPER WINDER DERMATOPATHOLOGY LABORATORY Pathology/Cytolog y TISSUE SPECIMEN FROM SKIN / Unknown 03/08/2020 03/09/2020 11:36 AM PAPER WINDER Harshad Duff MD LAB - PATHOLOGY/CYTOLOGY ORD ERABLES Final Result DERMATOPATHOLOGY LABORATORY [facility] - Department of Dermatology [facility] Medicine [address] [place] [address], [address] [phone] documented in this encounter Visit Diagnoses Not on filedocumented in this encounter Care Teams Computer Programming Manager Relationship Specialty Start Date End Date Jeff Haines MD [address] [place] [address] PCP - General 10/20/18 documented as of this encounter
--- OUTSIDE RECORDS SUMMARY | 2024-08-17 07:26 | XMS_ITS | Encounter Summary ---
Author Organization [facility] Facility Care Team Providers Care Student Support Counselor Name Role Phone Michel Phelan MD Primary Care Provider [phone] Jeff Haines MD Primary Care Provider Jeff Haines MD Primary Care Provider Encounter Details Date Type Department Care Team (Latest Contact Info) Description 06/25/2017 Orders Only [facility] CLINCONV ProviderHiren MD [address] [place] [address] Social History Tobacco Use Types Packs/Day Years Used Date Smoking Tobacco: Never Assessed Comments Unknown Sex and Gender Information Value Date Recorded Sex Assigned at Not on file Legal Sex Female 3:42 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 Historical Provider LAB BLOOD ORDERABLES Ayaka l Result * CYTOLOGY (06/25/2017 12:00 AM PRINT WASHER) Narrative 06/25/2017 12:00 AM PRINT WASHER Ordered by an unspecified provider. Historical Provider LAB CYTOLOGY ORDERABLES F inal Result * SCAN - LABS (06/25/2017 12:00 AM PRINT WASHER) Narrative 06/25/2017 12:00 AM PRINT WASHER Ordered by an unspecified provider. Historical Provider Final Res ult documented in this encounter Visit Diagnoses Not on filedocumented in this encounter Care Teams Student Support Counselor Relationship Specialty Start Date End Date Michel Phelan MD [address] [place] [place] [address] PCP - General 10/21/14 01/12/19 Jeff Haines MD [address] [place] [place] [address] PCP - General 02/26/19 Jeff Haines MD [address] [place] [place] [address] PCP - General 01/13/19 02/25/19 documented as of this encounter
--- OUTSIDE RECORDS SUMMARY | 2024-08-17 07:26 | XMS_ITS | Encounter Summary ---
Author Organization [facility] Facility Care Team Providers Care Division Field Inspector Name Role Phone Michel Phelan MD Primary Care Provider [phone]- [phone] Jeff Haines MD Primary Care Provider Jeff Haines MD Primary Care Provider Encounter Details Date Type Department Care Team (Latest Contact Info) Description 09/30/2016 Orders Only [facility] CLINCONV ProviderHiren MD [address] [place] [address] Social History Tobacco Use Types Packs/Day Years Used Date Smoking Tobacco: Never Assessed Comments Unknown Sex and Gender Information Value Date Recorded Sex Assigned at Not on file 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 Historical Provider Final Res ult documented in this encounter Visit Diagnoses Not on filedocumented in this encounter Care Teams Division Field Inspector Relationship Specialty Start Date End Date Michel Phelan MD [address] [place] [id number] PCP - General 10/21/14 01/12/19 Jeff Haines MD [address] [place] [address] PCP - General 02/26/19 Jeff Haines MD [address] [place] [address] PCP - General 01/13/19 02/25/19 documented as of this encounter
--- OUTSIDE RECORDS SUMMARY | 2024-08-17 07:26 | XMS_ITS | Continuity of Care Document ---
Author Organization [facility] Address [address] [facility] [place] [address] Phone Care Team Providers Care Highway Engineering Technician Name Role Phone Ana Alberts Unavailable Unavailable Procedures Procedure Date Office/outpatient Visit, Est Office/outpatient Visit, Est Visual Field Examination(s) Office/outpatient Visit, [facility] Advance Directives Directive Yes / No Effective Date File Name No Information Encounters Encounter Description Practice Location Reason(s) For Visit Diagnoses Date Provider Providers Copied on Encounter Office/outpat ient Visit, Est [facility], [address] [place] [address] [address], [place], [place], [id number], tel:[phone] [facility] No Information 0-201 0 Lexus Pompan. [address] [facility] [address] , [address], [place], [place], [facility], . tel:[phone] Office/outpat ient Visit, [facility], [address] [place] [address] [address], [place], [place], [id number], [place] tel:[phone] [facility] No Information 2-201 0 Lexus Perez. [address] [facility] , [address], [place], [place], [facility], . tel:[phone] [facility], [address] [place] [address] [address], [place], [place], [id number], [place] tel:[phone] [facility] No Information 8-200 9 Alberts Ana. [address] , [address], [place], [address], [place]. tel:[phone] Referring Provider: Ana Lipscomb, [address] [facility] [address], [place], [address]. tel:[phone] Office/outpat ient Visit, [facility], [address], [place], [place], [id number], [place] tel:[phone] [facility] No Information 9 Lexus Perez. [address] [facility] , [address], [place], [address], [place]. tel:[phone] Family History Family Member Type Diagnosis Age At Onset No Information Payers Payer name Insurance type Covered democrat ID Authorkata dav(s) [facility] Out Of State [id number] Social History Type Description Quantity Date Captured Comments Sex Female Smoking Status No Information Chief Complaint And Reason For Visit No Information Reason For Referral Reason For Referral No Information History Of Present Illness Encounter Date Complaint History Of Prese nt Illness No Information Functional Status Date Functional Assessmen t No Information Instructions Date Instruction Additional Infor mation No Information Assessments Type Assessment Date No Information Patient Care Teams Name Effective Dates (start - stop) Status Members No Information
--- OUTSIDE RECORDS SUMMARY | 2024-08-17 07:26 | XMS_ITS | Referral Summary ---
Author Organization [facility] Address [address] [place] [address] Care Team Providers Care Clinical Statistical Programmer Name Role Phone Jeff Haines MD Primary Care Provider Encounters Date Type Department Care Team Description 08/03/2024 Orders Only [facility] Obstetrical Gynecology [facility] [address] [place] [phone] Moshe Coffey MD Extremely dense tissue of both breasts on mammography (Primary Dx) 07/30/2024 Results Follow-Up [facility] Obstetrical Gynecology [address] [place] [address] [address] [place] [address] Moshe Coffey MD 07/30/2024 3:46 PM CDT - 07/30/2024 11:59 PM CDT Hospital Encounter [facility] [address] [facility] [address] [facility] [address] [place] [address] Screening mammogram, encounter for; Encounter for screening mammogram for malignant neoplasm of breast Discharge Disposition: Discharge to home or self care from Last 3 Months Allergies No known active allergies Medications multivitamin [...] Active Active Problems No known active problems Social History Tobacco Use Types Packs/Day Years [...] on file 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 For women [...] HPV HR 16 Not Detected Not Detected [facility] Comment:Testing performed by : [facility], [address] [place] [address] HPV HR 18 Not Detected Not Detected [facility] Comment:Testing performed by : [facility], [address] [place]., [address] HPV HR Non 16/18 Not Detected Not Detected [facility] Comment: Interpretive Data Nucleic acid amplification for [...] this test have been verified by the [facility] Molecular Infectious Disease laboratory. Correlate with separately reported cytology results, as applicable. Interpretive data last revised 22 Testing performed by: [facility], [address] [place]., [address] Endocervical 02/19/2024 9:50 AM CDT 02/19/2024 7:26 PM CDT Narrative JENNIFER - 02/20/2024 2:14 AM CDT Clinical history and diagnosis->screening Number of vials->1 Testing type->Screening Last menstrual period (date if known)->postmen Moshe Coffey MD LAB BODY FLUIDS AND STO OLS ORDERABLES Final Result [facility] [address] [facility] Department [place] [address] [facility] from Last 3 Months or Most Recently Relevant to Health Maintenance Insurance BLUE ACC CHOICE OOS ANTHEM ACCESS CHOICE BLUE ACC CHOICE OOS ANTHEM ACCESS CHOICE Care Teams Clinical Statistical Programmer Relationship Specialty Start Date End Date Jeff Haines MD PCP - General 02/26/19
--- OUTSIDE RECORDS SUMMARY | 2024-08-17 07:26 | XMS_ITS | Encounter Summary ---
Author Organization [facility] Address [address] [place] [address] Care Team Providers Care Assembling Motor Builder Name Role Phone Jeff Haines MD Primary Care Provider Reason for Visit * Reason Onset Date Comments MEDICATION REFILL 04/29/2019 Encounter Details Date Type Department Care Team (Late st Contact Info) Description 04/29/2019 Refill [facility] [address] [place] [address] Lio Shipley MD [address] [place] [address] MEDICATION REFILL Social History Tobacco Use Types Packs/Day Years Used Date Smoking Tobacco: Never Smokeless Tobacco: Never Alcohol Use Standard Drinks/Week Comments Yes 0 (1 standard drink = 0.6 oz pur e alcohol) rarely Comments Unknown Sex and Gender Information Value Date Recorded Sex Assigned at Not on file Legal Sex Female 5:20 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
== END 2024-08-17 07:21 | disposition home or self-care (01) ==
PROVIDERS: PCP Family Medicine
DX: M32.14 Glomerular disease in systemic lupus erythematosus (principal); R31.29 Other microscopic hematuria
CPT/HCPCS: 76770

== ENCOUNTER 2024-10-22 15:45 | Outpatient (CLI) | payer BC, SELFPAY ==
--- NOTE | ~2024-10-22 | CT_ITS ---
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 TECHNIQUE: Multiple contiguous axial images of the abdomen and pelvis were performed without the admi nistration of intravenous contrast The dose-length product (DLP) was 182.64 mGy-cm. Automated exposure control and iterative reconstruction technique were employed. FINDINGS/OBSERVATIONS: Visualized lower thorax: The bilateral lung bases are clear. The heart is of normal size, without pericardial effusion. Small hiatal hernia is present. Liver: 8 mm well-circumscribed focus of decreased attenuation within segment 6 of the liver, unchange d from 2015 examination. The remainder of the liver demonstrates otherwise homogeneous attenuation and is not enlarged. Gallbladder and biliary system: The gallbladder is only minimally distended, and otherwise unremarkable. Pancreas: Limited evaluation of the pancreas secondary to the lack of intravenous contrast. Spleen: The spleen demonstrates homogeneous attenuation and is not enlarged. Kidneys: 2 mm nonobstructing calculus within the lower pole of the left kidney. 3 mm nonobstructing c alculus within the upper pole of the right kidney The remainder of the bilateral kidneys are otherwise unremarkable, without hydronephrosis or addition al renal calculi. Adrenal glands: Unremarkable. Gastrointestinal tract: Fecal stasis within the colon. Appendix: The appendix is not definitively visualized. However, no pericecal inflammatory change is identified suggest the presence of acute appendicitis. Vasculature: Unremarkable. Lymph nodes: No pathologically enlarged or morphologically suspicious lymph nodes within the retroperitoneum or at the root of the mesentery. Pelvic structures: The bladder is decompressed, limiting its evaluation. The uterus is retroverted and retroflexed, and otherwise unremarkable. Body wall and musculoskeletal: Degenerative disease at the level of L5/S1 with osteophyte formation, disc space narrowing and endpla te changes. IMPRESSION: 2 and 3 mm nonobstructing stones within the bilateral kidneys, which are otherwise unremarkable. Reviewed, dictated and finalized at location A. IMPRESSION: 2 and 3 mm nonobstructing stones within the bilateral kidneys, which are otherw ise unremarkable.
== END 2024-10-22 15:46 | disposition home or self-care (01) ==
PROVIDERS: PCP Family Medicine
DX: M32.9 Systemic lupus erythematosus, unspecified (principal); N20.0 Calculus of kidney
CPT/HCPCS: 74176